=== PATIENT | female | born 1945 ===

== ENCOUNTER 2020-10-01 06:50 | Day surgery (SDC) | payer OTHER ==
[~2020-10-01 06:50] MED LIST: AMLODI; COZAAR25 MG PO; MIRTAZAPINE45 MG PO
[2020-10-01] MEDS ORDERED: ULTRACET PO (11:42)
== END 2020-10-01 14:20 | disposition home or self-care (01) ==
LOC: CIR.AMB 06:50
PROVIDERS: ATTEND Surgery
DX: C21.1 Malignant neoplasm of anal canal (principal); Z20.822 Contact with and (suspected) exposure to COVID-19
CPT/HCPCS: 36561; C1751

== ENCOUNTER 2021-06-28 08:41 | Outpatient (CLI) | payer OTHER ==
[~2021-06-28 08:41] MED LIST changes: +ULTRACET PO
== END 2021-06-28 08:43 | disposition home or self-care (01) ==
LOC: TOM 08:41
PROVIDERS: ATTEND Internal Medicine
DX: C78.7 Secondary malignant neoplasm of liver and intrahepatic bile duct (principal); C31.1 Malignant neoplasm of ethmoidal sinus
CPT/HCPCS: 71260; 74177; Q9965

== ENCOUNTER 2022-06-01 19:27 | Inpatient (IN) | payer OTHER ==
[~2022-06-01] VITALS: Ht 157.5 cm; Wt 67.6 kg
[2022-06-01] MEDS ORDERED: GABAPENTIN300 M2 PO (19:50)
[2022-06-01] MEDS ORDERED: SYNTHROID88 MCG PO (19:50)
[2022-06-01] MEDS ORDERED: LOSARTAN POTASS50 MG PO (19:51)
--- NOTE | 2022-06-01 19:53 | NUR ---
SE RECIBE PTE FEMENINA DE 77 ANOS ALERTA Y ORIENTADA X3 QUIEN LLEGA A ER REFERIDA POR ONCOLOGO CHAS CARLSON QUIEN REFIERE A PTE POR HYPONATREMIA LA CUAL EN LABORATORIO MAS RECIENTE OBTUVO VALOR DE 121. SE MONITOREAN S/V Y SE UBICA EN OBSERBACION.
--- NOTE | 2022-06-01 21:33 | NUR ---
SE ORIENTA PTE SOBRE TX MEDICO EL CUAL REFIERE ENTENDER.SE LE EXTRAEN MUESTRAS BAJO MEDIDAS ASEPTICAS,SE CANALIZA Y SE COLOCAN FLUIDOS DE MANTENIMIENTO.
--- NOTE | 2022-06-01 23:37 | NUR ---
SE RECIBE PTE ALERTA Y ORIENTADA X3 EN FRANKIE CON BARANDAS ELEVADAS. PTE CANALIZADA AREA MARYSE DE EDEMA Y DE ENROJECIMIENTO. PTE EN ESPERA DE RE EVALUCION MEDICA.
[2022-06-05] MEDS ORDERED: TRAM1TAB98 PO (10:10)
[2022-06-05] MEDS ORDERED: SYNTHROID88 MCG PO (10:10)
[2022-06-05] MEDS ORDERED: GABAPENTIN300 M2 PO (10:10)
[2022-06-05] MEDS ORDERED: PROTONIX40 MG PO (10:10)
[2022-06-05] MEDS ORDERED: LOSARTAN POTASS50 MG PO (10:10)
== END 2022-06-05 15:27 | disposition home or self-care (01) | DRG 690 ==
LOC: ER 19:27 → MEDI 23:59 → SEC-K 06-02 01:37 → MEDI 06-02 14:21
PROVIDERS: ADMIT Internal Medicine; ATTEND Internal Medicine
DX: N39.0 Urinary tract infection, site not specified (principal); E87.1 Hypo-osmolality and hyponatremia; C18.9 Malignant neoplasm of colon, unspecified; E46 Unspecified protein-calorie malnutrition; C78.7 Secondary malignant neoplasm of liver and intrahepatic bile duct; E86.0 Dehydration; D63.0 Anemia in neoplastic disease; B96.20 Unspecified Escherichia coli [E. coli] as the cause of diseases classified elsewhere; Z74.01 Bed confinement status; I10 Essential (primary) hypertension; E03.9 Hypothyroidism, unspecified; E11.9 Type 2 diabetes mellitus without complications; Z79.4 Long term (current) use of insulin